=== PATIENT | female | born 1995 | race African-American/Black ===

== ENCOUNTER 2020-05-08 01:05 | Emergency (ER) | payer OTHER ==
[~2020-05-08] VITALS: Ht 165.1 cm; Wt 63.5 kg
== END 2020-05-08 03:23 | disposition home or self-care (01) ==
LOC: ER 01:05
DX: S61.022A Laceration with foreign body of left thumb without damage to nail, initial encounter (principal); W26.0XXA Contact with knife, initial encounter; Y93.89 Activity, other specified; Y92.018 Other place in single-family (private) house as the place of occurrence of the external cause; Y99.8 Other external cause status

== ENCOUNTER 2020-05-14 22:59 | Emergency (ER) | payer OTHER ==
[~2020-05-14] VITALS: Ht 175.3 cm; Wt 70.3 kg
== END 2020-05-14 23:34 | disposition home or self-care (01) ==
LOC: ER 22:59
DX: Z48.02 Encounter for removal of sutures (principal)

== ENCOUNTER 2020-08-08 08:28 | Emergency (ER) | payer OTHER ==
[~2020-08-08] VITALS: Ht 165.1 cm; Wt 67.1 kg
== END 2020-08-08 10:19 | disposition home or self-care (01) ==
LOC: ER 08:28
DX: M79.672 Pain in left foot (principal)